=== PATIENT | male | born 1985 | race Hispanic/Latino ===

== ENCOUNTER 2024-03-07 20:40 | Emergency (ER) | payer OTHER ==
[~2024-03-07] VITALS: Ht 167.6 cm; Wt 93.9 kg
[2024-03-07 21:18] LABS: RAPID GROUP A STREP negative (NEGATIVE)
[2024-03-07 21:22] LABS: SARS-CoV-2, RNA, NAAT NEGATIVE SARS CoV-2 (NEGATIVE)
[2024-03-07 21:29] LABS: INFLUENZA TYPE A Negative For Type A (NEGATIVE); INFLUENZA TYPE B Negative For Type B (NEGATIVE)
[2024-03-07 21:37] VITALS: BP 148/90; PULSE 68; RESP 18; O2SAT 98
[2024-03-07] MEDS: FAMOTIDINE 20MG TAB PO ONE (21:45)
[2024-03-07] MEDS: FAMOTIDINE 20MG TAB ONE (21:45)
[2024-03-07] MEDS: DIPHENHYDRAMINE HCL 25 MG CAPSULE ONE (21:45)
[2024-03-07] MEDS: DIPHENHYDRAMINE HCL 25 MG CAPSULE PO ONE (21:45)
[2024-03-07] MEDS ORDERED: FAMO-136 PO (21:47)
[2024-03-07] MEDS ORDERED: DIPH-1242 PO (21:47)
== END 2024-03-07 21:51 | disposition home or self-care (01) ==
LOC: EDH 20:40
DX: S00.96XA Insect bite (nonvenomous) of unspecified part of head, initial encounter (principal); I10 Essential (primary) hypertension; Z90.49 Acquired absence of other specified parts of digestive tract; Z20.822 Contact with and (suspected) exposure to COVID-19; X58.XXXA Exposure to other specified factors, initial encounter
CPT/HCPCS: 99283; 87635; 87880; 87804 ×2; Q0163